=== PATIENT | male | born 1995 | race Caucasian/White ===

== ENCOUNTER 2018-03-19 17:15 | Emergency (ER) | payer OTHER ==
[~2018-03-19] VITALS: Ht 69 cm; Wt 75.0 kg
[2018-03-19 17:21] VITALS: BP 125/71; PULSE 77; TEMP 99
== END 2018-03-19 17:58 | disposition home or self-care (01) ==
LOC: COL.ER 17:15
DX: R22.9 Localized swelling, mass and lump, unspecified (principal); D17.24 Benign lipomatous neoplasm of skin and subcutaneous tissue of left leg